=== PATIENT | male | born 2000 | race Caucasian/White ===

== ENCOUNTER 2020-07-30 20:20 | Observation (INO) | payer OTHER, SELFPAY ==
[~2020-07-30 20:20] MED LIST: Iopamidol 370 76% 100 ML VIAL ONE
[2020-07-30 22:27] LABS: #Basophils 0.1 thou/uL (0.0-0.2); #Eosinphils 0.1 thou/uL (0.0-0.7); #Lymphocytes 2.9 thou/uL (1.20-3.40); #Monocytes 1.1 thou/uL (0.11-0.59); #Neutrophils 11.2 thou/uL (1.40-6.50); %Basophils 0.5 % (0.0-1.0); %Eosinophils 0.5 % (0.0-10.0); %Monocytes 7.3 % (0.0-10.0); %Neutrophils 72.7 % (42.0-75.0); Hemoglobin 15.9 g/dL (14.0-18.0); Mean Corpuscular HGB CONC 34.2 g/dL (32.0-36.0); Mean Corpuscular Hemoglobin 30.5 pg (27.0-31.0); Mean Platelet Volume 8.4 fL (7.4-10.4); Platelet Count 191 thou/uL (130-400); RBC Distribution Width 12.4 % (11.5-14.5); Red Blood Cell (RBC) Count 5.22 mill/uL (4.70-6.10); White Blood Cell (WBC) Count 15.4 thou/uL (4.8-10.8)
[2020-07-30] MEDS ORDERED: Ketorolac Tromethamine 30 MG/ML VIAL ONE (22:36)
[2020-07-30] MEDS ORDERED: cefTRIAXone\\ROCEPHIN 1 GM VIAL ONE (22:36)
[2020-07-30] MEDS ORDERED: Acetaminophen 500 MG TAB ONE (22:36)
--- NOTE | 2020-07-30 22:42 | RAD ---
XR Chest 1 View Portable History: Sore throat and fever Comparison: None. Findings: Lungs are clear. No pneumothorax or effusion. Cardiac silhouette and mediastinal contours a re within normal limits. No acute osseous abnormality. Impression: No acute intrathoracic abnormality.
[2020-07-30 22:47] LABS: ALT (SGPT) 22 U/L (8-55); AST (SGOT) 18 U/L (5-34); Albumin 4.6 g/dL (3.5-5.0); Alkaline Phosphatase 84 U/L (40-110); Anion Gap 16 mmol/L (10-20); BUN (Urea Nitrogen) 20 mg/dL (8.9-20.6); Bilirubin, Total 1.3 mg/dL (0.2-1.2); Calc. Creatinine Clearance 0 mL/min (70-130); Calcium 9.8 mg/dL (7.8-10.44); Carbon Dioxide 24 mmol/L (22-29); Chloride 102 mmol/L (98-107); Estimated GFR-MDRD 70; Globulin 3.6 g/dL (2.4-3.5); Glucose 92 mg/dL (70-105); Lipase 36 U/L (8-78); Magnesium 1.8 mg/dL (1.6-2.6); Potassium 4.1 mmol/L (3.5-5.1); Protein, Total 8.2 g/dL (6.0-8.3); Sodium 138 mmol/L (136-145)
[2020-07-30 22:58] LABS: MONO NEGATIVE CONTROL ZONE White (Negative) (White); MONO POSITIVE CONTROL Pink Line (Positive) (PINK/RED); Mononucleosis NEGATIVE (NEGATIVE)
[2020-07-31] MEDS ORDERED: Vancomycin 1 GM/200 ML BAG ONE (00:16)
[2020-07-31 00:45] LABS: HIV (1/2) Antibody/Antigen Non-Reactive (NonReactive); HIV 1/2 INDEX 0.09 S/CO (<1.00); Thyroid Stimulating Hormone 2.6724 uIU/mL (0.35-4.94)
[2020-07-31 01:24] LABS: Bacteria/HPF None Seen HPF (None Seen); Bilirubin Negative (Negative); Blood, Urine Negative (Negative); Clarity Clear (Clear); Glucose, Urine (Dipstick) Normal (Negative); Ketone, Urine Negative (Negative); Leukocyte Negative Leu/uL (Negative); Nitrite Negative (Negative); Protein, Urine (Dipstick) 30 mg/dL (Neg-Trace); RBC/HPF 0-3 HPF (0-3); Specific Gravity, Urine 1.036 (1.002-1.036); Squamous Epithelial None Seen HPF (0-3); Urobilinogen Normal mg/dL (Less than 2)
[2020-07-31 01:37] LABS: Amphetamine Not Detected (NotDetected); Barbiturates Screen Not Detected (NotDetected); Benzodiazepine Screen Not Detected (NotDetected); Cocaine Metabolite Screen Not Detected (NotDetected); Medtox Control Line Valid? VALID (VALID); Medtox Reader # READER 1; Methadone Not Detected (NotDetected); Methamphetamine Not Detected (NotDetected); Opiate Screen Not Detected (NotDetected); Oxycodone Screen Not Detected (NotDetected); Phencyclidine (PCP) Not Detected (NotDetected); THC/Cannabinoid Screen Not Detected (NotDetected); Tricyclic Screen Not Detected (NotDetected)
[2020-07-31 02:14] LABS: SARS-CoV-2 NAA Rapid Test Not Detected (NotDetected)
[2020-07-31] MEDS ORDERED: Ondansetron ODT 4 MG TAB SL PRN (03:30)
[2020-07-31] MEDS ORDERED: Ondansetron PF 4 MG/2 ML Vial IVP PRN ×2 (03:30→06:59)
[2020-07-31] MEDS ORDERED: Acetaminophen 325 MG TAB PO PRN ×2 (03:30→06:59)
[2020-07-31] MEDS ORDERED: Lactated Ringer's 1,000 ML IV SCH (03:30)
[2020-07-31 04:05] VITALS: BMI 30.9
--- NOTE | 2020-07-31 06:26 | PDOC.HHP ---
Hospitalist HPI - History of Present Illness Sore throat History of Present Illness: Patient is a 20 year old male with PMH factor V disorder, asthma who presents to ED for throat pain, fever, malaise x 2 days. Patient reports fever at home, no covid contacts, managing secretions, no SOB, in ED significant tachycardia and fever noted concerning for sepsis, covid and flu swabs negative, lactic acid normal, stret and monospot negative, lactic acid not elevated, recieved vancomycin and rocephin x 1 dose, admitted while awaiting neck ct results. Hospitalist ROS - Review of Systems Constitutional: reports: fever, chills, weakness, malaise Eyes: denies: pain, vision change, conjunctivae inflammation, eyelid inflam mation, redness, other ENT: reports: mouth pain, throat pain, throat swelling. denies: ear pain, ear discharge, nose pain, nose discharge, nose congestion, mouth swelling, other Respiratory: denies: cough, dry, shortness of breath, hemoptysis, SOB with excertion, pleuritic pain, sputum, wheezing, other Cardiovascular: denies: chest pain, palpitations, orthopnea, paroxysmal noc. dyspnea, edema, light headedness, other Gastrointestinal: denies: nausea, vomiting, abdominal pain, diarrhea, constipa tion, melena, hematochezia, other Genitourinary: denies: dysuria, frequency, incontinence, hematuria, retention, other Musculoskeletal: denies: neck pain, shoulder pain, arm pain, back pain, hand pain, leg pain, foot pain, other Skin: denies: rash, lesions, mandi, bruising, other Neurological: denies: weakness, numbness, incoordination, change in speech, confusion, seizures, other All other systems reviewed; all pertinent +/- noted in HPI/Subj - Medication Medications: Active Medications Generic Name Dose Route Start Last Admin Trade Name Freq PRN Reason Stop Dose Admin Lactated Ringer's 1,000 mls @ 125 mls/hr 07/31/20 03:30 07/31/20 05:02 Lactated Ringer's IV 07/31/20 15:00 1,000 mls .Q8H [facility] Hospitalist History - Past Medical History Other Medical History: factor v disorder, asthma - Past Surgical History Past Surgical History: reports: no pertinent history - Family History Family History: reports: no pertinent history - Social History Alcohol: reports: None Drugs: reports: none - Exam General Appearance: NAD, awake alert Eye: PERRL, anicteric sclera ENT: normocephalic atraumatic, no oropharyngeal lesions, moist mucosa ENT - other findings: throat edema, erythema, no lesions, patent airway Neck: supple, symmetric, no JVD, no thyromegaly, no lymphadenopathy, no carotid bruit Heart: RRR, no murmur, no gallops, no rubs, normal peripheral pulses Respiratory: CTAB, no wheezes, no rales, no ronchi, normal chest expansion, no tachypnea, normal percussion Respiratory - other findings: no stridor Gastrointestinal: soft, non-tender, non-distended, normal bowel sounds, no palpable masses, no hepatomegaly, no splenomegaly, no bruit Extremities: no cyanosis, no clubbing, no edema Skin: normal turgor, no lesions, no rashes Neurological: cranial nerve grossly intact, normal sensation to touch, no weakness, no focal deficits, no new deficit Musculoskeletal: normal tone, normal strength, no muscle wasting Psychiatric: normal affect, normal behavior, A&O x 3 Hospitalist Results - Labs Result Diagrams: 07/30/20 22:07 07/30/20 22:07 Lab results: WBC 15.4 thou/uL (4.8-10.8) H 07/30/20 22:07 Hgb 15.9 g/dL (14.0-18.0) 07/30/20 22:07 Hct 46.5 % (42.0-52.0) 07/30/20 22:07 MCV 89.0 fL (78.0-98.0) 07/30/20 22:07 Plt Count 191 thou/uL (130-400) 07/30/20 22:07 Neutrophils % 72.7 % (42.0-75.0) 07/30/20 22:07 Sodium 138 mmol/L (136-145) 07/30/20 22:07 Potassium 4.1 mmol/L (3.5-5.1) 07/30/20 22:07 Chloride 102 mmol/L (98-107) 07/30/20 22:07 Carbon Dioxide 24 mmol/L (22-29) 07/30/20 22:07 BUN 20 mg/dL (8.9-20.6) 07/30/20 22:07 Creatinine 1.29 mg/dL (0.7-1.3) 07/30/20 22:07 Glucose 92 mg/dL (70-105) 07/30/20 22:07 Lactic Acid 0.8 mmol/L (0.5-2.2) 07/30/20 23:55 Calcium 9.8 mg/dL (7.8-10.44) 07/30/20 22:07 Total Bilirubin 1.3 mg/dL (0.2-1.2) H 07/30/20 22:07 AST 18 U/L (5-34) 07/30/20 22:07 ALT 22 U/L (8-55) 07/30/20 22:07 Alkaline Phosphatase 84 U/L (40-110) 07/30/20 22:07 Serum Total Protein 8.2 g/dL (6.0-8.3) 07/30/20 22:07 Albumin 4.6 g/dL (3.5-5.0) 07/30/20 22:07 Lipase 36 U/L (8-78) 07/30/20 22:07 Urine Ketones Negative mg/dL (Negative) 07/31/20 00:57 Urine Blood Negative (Negative) 07/31/20 00:57 Urine Nitrite Negative (Negative) 07/31/20 00:57 Ur Leukocyte Esterase Negative [place]/uL (Negative) 07/31/20 00:57 Urine RBC 0-3 HPF (0-3) 07/31/20 00:57 Urine WBC 4-6 HPF (0-3) A 07/31/20 00:57 Ur Squamous Epith Cells None Seen HPF (0-3) 07/31/20 00:57 Urine Bacteria None Seen HPF (None Seen) 07/31/20 00:57 Additional comment: labs, imaging reports, ED documents reviewed Hospitalist H&P A/P - Plan Plan: Patient is a 20 year old male with PMH factor V disorder, asthma who presents to ED for throat pain, fever, malaise x 2 days. # sore throat # sepsis - WBC 15, tachycardia, fever Patient reports fever at home, no covid contacts, managing secretions, no SOB, in ED significant tachycardia and fever noted concerning for sepsis, covid and flu swabs negative, lactic acid normal, stret and monospot negative, lactic acid not elevated, recieved vancomycin and rocephin x 1 dose, admitted while awaiting neck ct results. - admit to floor - start clindamycin - follow up neck ct - IVF # factor V - noted, no symptoms of clot, start dvt ppx if needing to be here beyond today
[2020-07-31] MEDS ORDERED: cloNIDine 0.1 MG TAB PO PRN (06:59)
[2020-07-31] MEDS ORDERED: hydrALAZINE 20 MG/ML VIAL SLOW IVP PRN (06:59)
[2020-07-31] MEDS: Clindamycin 150 MG CAP PO SCH ×4 (08:12→19:24)
[2020-07-31] MEDS: Sodium Chloride 0.9% 1,000 ML IV SCH ×2 (08:13→19:24)
[2020-07-31] MEDS ORDERED: Vancomycin 1 GM in Premix Bag 1 BAG IVPB SCH (09:00)
[2020-07-31] MEDS: HYDROcodone/Acetaminophen 5/325 mg Tablet PO PRN ×2 (09:46→19:25)
[2020-07-31] MEDS ORDERED: cefTRIAXone\\ROCEPHIN 1 GM in Sodium Chloride 0.9% 100 ML IVPB SCH (11:00)
--- NOTE | 2020-07-31 12:13 | CT ---
PRELIMINARY REPORT/[facility]/EMERGENCY AFTER HOURS PROCEDURE: EXAM: CT Neck with Intravenous Contrast. CLINICAL HISTORY: Eval for possible abscess; THROAT PAIN, REDNESS, SWELLING STARTING YESTERDAY TECHNIQUE: Axial computed tomography images of the neck with intravenous contrast. Sagittal and coron al reformations performed. CONTRAST: With; ISOVUE 370, 90ML COMPARISON: None provided. FINDINGS: PHARYNX: The nasopharynx, oropharyx, and hypopharynx are unremarkable. No pharyngeal mucosal based ma ss lesions. The palatine tonsils are enlarged and abut in the midline. LARYNX: The larynx is unremarkable. Normal epiglottis. RETROPHARYNGEAL SPACE: No retropharyngeal soft tissue swelling or gas. SALIVARY GLANDS: The parotid, submandibular, and sublingual glands are unremarkable. LYMPH NODES: Prominent left cervical lymph nodes as well as left greater than right submandibular lym ph nodes. THYROID: The thyroid gland is unremarkable. No nodule. BONES: No acute osseous abnormality. Bilateral dental caries. IMPRESSION: No abscess seen. The palatine tonsils are enlarged and abut in the midline. Prominent left cervical lymph nodes as well as left greater than right submandibular lymph nodes. ELECTRONICALLY SIGNED BY: Keon Queen MD Jul 31, 2020 12:48:18 AM CDT FINAL REPORT EMERGENT AFTER HOURS CT NECK WITH IV CONTRAST: HISTORY: Throat pain, redness, and swelling which started one day ago. Evaluate for abscess. COMPARISON: None. IMPRESSION: 1. Mild nonspecific prominence of the palatine tonsils without fluid or edema, and there is no fluid collection seen to suggest an abscess. 2. Lymphadenopathy with increase in number of lymph nodes seen throughout the neck. Large level II ly mph nodes are seen bilaterally, the largest on the left measuring 1.7 cm in short axis dimension. Lymph nodes could be on the basis of reactive changes. However, neoplastic process such as lymphoma i s a differential consideration. 3. Findings are in disagreement with pulmonary report by [facility]. There is mention of promin ence of lymph nodes, but findings are suggestive of lymphadenopathy. Findings of lymphadenopathy were discussed with Gretel nurse on the hospital floor, on 07/31/2020 at 1159 hours. Code QD Transcribed Date/Time: 07/31/2020 12:26 PM
--- NOTE | 2020-07-31 13:43 | EKG ---
Test Reason : Blood Pressure : / mmHG Vent. Rate : 119 BPM Atrial Rate : 119 BPM P-R Int : 120 ms QRS Dur : 080 ms QT Int : 300 ms P-R-T Axes : 006 065 001 degrees QTc Int : 422 ms Sinus tachycardia Otherwise normal ECG Confirmed by KAMI DURAN DO ([id number]), web editor YAIMA PENA ([id number]) on 07/31/2020 1:43:25 PM Referred By: Confirmed By:KAMI DURAN DO
[2020-07-31] MEDS ORDERED: Lidocaine Viscous Sol 2% 15 ml UD Cup SSW PRN (14:41)
[2020-07-31] MEDS ORDERED: Chloraseptic Spray 180 ml Bottle PO PRN (14:42)
[2020-07-31] MEDS ORDERED: Enoxaparin Sodium 40 MG/0.4 ML SYRINGE SC SCH (21:00)
[2020-08-01] MEDS: Sodium Chloride 0.9% 1,000 ML IV SCH (03:09)
[2020-08-01 04:41] LABS: #Eosinphils 0.2 thou/uL (0.0-0.7); #Lymphocytes 2.4 thou/uL (1.20-3.40); #Monocytes 0.7 thou/uL (0.11-0.59); #Neutrophils 6.4 thou/uL (1.40-6.50); %Basophils 0.3 % (0.0-1.0); %Eosinophils 2.4 % (0.0-10.0); %Lymphocytes 24.8 % (21.0-51.0); %Monocytes 7.3 % (0.0-10.0); %Neutrophils 65.3 % (42.0-75.0); Hemoglobin 13.2 g/dL (14.0-18.0); Mean Corpuscular HGB CONC 32.4 g/dL (32.0-36.0); Mean Corpuscular Hemoglobin 28.7 pg (27.0-31.0); Mean Corpuscular Volume 88.5 fL (78.0-98.0); Mean Platelet Volume 7.9 fL (7.4-10.4); Platelet Count 168 thou/uL (130-400); RBC Distribution Width 12.2 % (11.5-14.5); White Blood Cell (WBC) Count 9.8 thou/uL (4.8-10.8)
[2020-08-01 07:29] VITALS: BP 119/80; TEMP 99.2
[2020-08-01] MEDS: Clindamycin 150 MG CAP PO SCH (08:15)
--- NOTE | 2020-08-01 10:36 | DIS ---
DATE OF ADMISSION: 07/31/2020 DATE OF DISCHARGE: 08/01/2020 DISCHARGE DIAGNOSES: 1. Pharyngitis, etiology unclear, improved. 2. Sepsis secondarily to pharyngitis, resolved. 3. Cervical lymphadenopathy secondary to pharyngitis. CONSULTATIONS: None. PERTINENT LABORATORY AND X-RAY FINDINGS: Complete metabolic profile within normal limits. TSH 2.67. Lactic acid level 0.8. CBC showed a white blood cell count ranging between 9.8 to 15.4. Urine drug screen dated 07/31/2020 negative. Monospot screen negative on . HIV-1 and HIV-2 antigen and antibody nonreactive on 07/30/2020. COVID PCR not detected on 07/31/2020. Blood cultures x2 dated 07/30/2020, showed no growth to date. Group A streptococcal throat screen negative on 07/30/2020. Influenza A and B antigen negative on 07/31/2020. Portable chest x-ray dated 07/30/2020, showed no acute cardiopulmonary process. CT of the neck dated 07/30/2020, showed mild nonspecific prominence of the palatine tonsils without abscess. Lymphadenopathy noted in the cervical region. HOSPITAL COURSE: The patient was initially admitted after presenting with fever, sore throat, and general malaise. The patient was noted initially in the emergency room meeting sepsis criteria with tachycardia, fever, and leukocytosis. The patient underwent extensive evaluation due to severe sore throat, however, workup was essentially unrevealing as stated previously. The patient did receive IV vancomycin and Rocephin and continued on clindamycin for the remainder of the hospital course. Blood cultures remained negative and the patient was afebrile throughout the hospital course. The patient did receive viscous lidocaine and Chloraseptic spray for symptomatic relief and overall remained clinically stable. I have examined the patient at the time of discharge and discussed followup instructions. The patient verbalizes understanding and in agreement and ready for discharge 08/01/2020. DISCHARGE MEDICATIONS: 1. Clindamycin 300 mg p.o. q.i.d. x7 days. 2. Viscous lidocaine 2% of 15 mL swish and swallow t.i.d. p.r.n. FOLLOWUP: The patient may follow up with the primary care provider of choice in the [place], [place] area after discharge. CONDITION ON DISCHARGE: Stable. ACTIVITY: Ad-juan. DIET: Regular. Soft diet recommended over the next 48 hours. CODE STATUS: Full. DISPOSITION: Home on 08/01/2020. Job ID: [id number] [id number]
[2020-08-01 18:59] LABS: Chlam.trachomatis by PCR,Urine Not Detected (NotDetected)
== END 2020-08-01 10:43 | disposition home or self-care (01) ==
LOC: ERS 20:20 → 2SW 07-31 00:01
PROVIDERS: ADMIT Internal Medicine; ATTEND Internal Medicine
DX: A41.9 Sepsis, unspecified organism (principal); J02.9 Acute pharyngitis, unspecified; D68.51 Activated protein C resistance; J45.909 Unspecified asthma, uncomplicated; Z20.828 Contact with and (suspected) exposure to other viral communicable diseases
CPT/HCPCS: 36415; 70491; 71045; 80053; 80306; 81003; 81015; 83605; 83690; 83735; 84443; 85025; 86308; 87040; 87081; 87086; 87389; 87430; 87491; 87591; 87804; 93005; 96361; 96365; 96366; 96367; 96375; G0378; J0696; J1885; J3370; J3490; Q9967; U0002